=== PATIENT | male | born 1955 | race Caucasian/White ===

== ENCOUNTER 2017-10-01 06:47 | Day surgery (SDC) | payer MEDICARE, OTHER, SELFPAY ==
[2017-09-25 12:04] VITALS: BMI 32.1
[2017-10-01] VITALS (9 sets, daily range): BP systolic 116–178; BP diastolic 52–93; PULSE 67–76; RESP 13–18; TEMP 36.2–36.6; O2SAT 95–100; BMI 32.1
[2017-10-01] MEDS: LACTATED RINGERS 1,000 ML 42 ML IV (07:11)
--- NOTE | 2017-10-01 07:16 | PM.PREOP ---
Pre-operative Note Interval Note Pre-op Check: History & Physical Reviewed by Physician and Exam Performed
--- NOTE | 2017-10-01 08:43 | PM.OP.1 ---
Operative Date/Time/Diagnoses - Date of procedure: 10/01/17 Time of procedure: 09:55 Pre-op diagnosis: Cervical disc herniation and stenosis Post-op diagnosis: same Procedure & Clinicians Procedure: C4-5 anterior cervical diskectomy and artificial disc replacement with microscope Same procedure as scheduled: Yes Indications: [age] year old male with intractable pain from cervical disc herniation. They had failed conservative management and requested operative intervention. Risks and benefits of surgery were discussed and appropriate consents were obtained. Surgeon: Carmelo Lopez Merchandise Director: Lulu Reid Anesthesia Type: General Operative Notes Findings: none Closure Type: primary Specimen(s): none sent Estimated Blood Loss (mL): 2 Procedure in detail: Patient was brought to the operating room and intubated on the table. A time-out was performed. Preoperative antibiotics were given. The neck was prepped and draped in the standard sterile fashion. Using a skin fold, we made a 3 cm oblique incision on the left side using his previous incision. We used Bovie to go through the platysma and then did a standard anterolateral blunt dissection down to the precervical fascia, dissecting through his previous scar tissue.. Fascia was nicked and elevated up. We exposed the top of his plate for placement. We then cleared out the disc and part of the vertebral body above this. We then subperiosteally elevated up the longus colli muscles. Self-retaining retractors were placed. [place] pins were placed under x-ray guidance to be parallel to the endplates. We then brought in the microscope. A scalpel used to perform an annulotomy. We then used a combination of pituitaries and curettes and Kerrison to perform a complete anterior diskectomy at C4-5. We took down the PLL and used Kerrison to remove any posterior disc material and osteophytes. At the end we could from the nerve hook cephalad caudally and out the foramen and everything was opened. We distracted open with the parallel pickling solution maker. We then used the horseshoes for sizing. We then used the trials. We then inserted a 15 mm x 15 mm x 5 mm size Mobi-C artificial disc replacement under fluoroscopic guidance for positioning. The traction was released and x-ray was checked again. The self-retaining retractors and [place] pins were removed and final x-rays taken. The wound was irrigated. There was no bleeding. The carotid was beating nicely. The platysma was closed. The superficial was closed. The skin was closed. A sterile dressing was placed. They were then extubated and brought to recovery room with no complications. Complications: none Condition: stable Disposition: PACU Plan for aftercare: Admitted for observation with bed. Possibly discharge this afternoon. Soft collar for comfort.
[2017-10-01] MEDS: CEFAZOLIN 2 GM/100 ML FROZ.PIGGY IV (09:05)
--- NOTE | 2017-10-01 09:22 | SUR.OPER ---
Supine on padded OR bed, head on gel donut, arm padded and tucked at side, legs uncrossed, safety belt at thigh, pillow under knees and lower legs .
[2017-10-01] MEDS: THROMBIN (BOVINE) 5,000 UNIT VIAL 5000 UNIT TOP (09:29)
[2017-10-01] MEDS: BUPIVACAINE 0.25% W/ EPI 50 ML VIAL INJ (09:35)
[2017-10-01] MEDS: SODIUM CHLORIDE 0.9% 1,000 ML, GENTAMICIN 80 MG IRR (09:43)
--- NOTE | 2017-10-01 10:11 | DI.RAD.S_ITS ---
PROCEDURE: XR CERVICAL SPINE 2V OR 3V INDICATIONS: 62-year-old male undergoing C4-C5 disc surgery. TECHNIQUE: 2 intraoperative view(s) of the cervical spine were acquired. COMPARISON: [facility], CR, XR CERVICAL SPINE 2 OR 3 VIEWS, 06/19/2017, 9:31. FINDINGS: Bones: Patient is status post C4-C5 disc replacement, with surgical prosthesis in expected position. C5-C7 interbody fusion and anterior fixation hardware remain in expected positions. Soft tissues: Endotracheal tube and nasogastric tube are partially visualized. IMPRESSION: C4-C5 disc replacement hardware appears in expected position. Dictated by: Taran Payne M.D. on 10/01/2017 at 10:40 Approved by: Taran Payne M.D. on 10/01/2017 at 10:42
[2017-10-01] MEDS: fentaNYL 100 MCG/2 ML INJ IV ×2 (10:40→10:47)
[2017-10-01] MEDS: hydrOXYzine 50 MG/ML INJ 25 MG IM (10:43)
[2017-10-01] MEDS: HYDROMORPHONE 0.5 MG INJ 0.2 MG IV (12:22)
[2017-10-01] MEDS: LACTATED RINGERS 1,000 ML 125 ML IV (12:24)
--- NOTE | 2017-10-01 12:35 | PC.ADMIT ---
[id number] Admission Note: The patient,Jordan Chavis,62 y/o, was given written information regarding hospital policies, unit procedures and contact persons. Patient's smoking status: Never smoker. Vital Signs - 8 hr 10/01/17 07:13 10/01/17 10:22 10/01/17 10:27 Temperature 97.9 F 97.1 F L Pulse Rate 70 71 74 Respiratory Rate 15 15 14 Blood Pressure 178/90 H 116/64 118/52 L Pulse Oximetry 100 96 97 10/01/17 10:31 10/01/17 10:42 10/01/17 10:58 Temperature Pulse Rate 67 74 72 Respiratory Rate 13 16 18 Blood Pressure 120/66 130/73 H 131/70 H Pulse Oximetry 97 96 96 10/01/17 11:10 10/01/17 11:30 10/01/17 12:25 Temperature 97.1 F L Pulse Rate 73 70 76 Respiratory Rate 15 Blood Pressure 160/93 H 157/91 H 155/91 H Pulse Oximetry 96 95 97 Rec'd pt from PACU to 101 at 1105. Transferred from stretcher to bed with slider board and assist x3. Pt is AAO x4 and making needs known with clear, logical speech. Oriented to surroundings, routine, pain scale, pain med regimen. Dsg to anterior neck is CDI. Soft collar in place. VSS. Placed call light in easy reach and educated to fall risk and use of call light. Pt and verbalize understanding. Notified speech therapy of order and requested ETA. Betsy states will be here approx 1330. Regular diet ordered. Pt requesting something the eat/drink. Provided soup and pudding, thin water. Pt tolerating without s/s of aspiration. Will monitor.
[2017-10-01] MEDS: HYDROCODONE/ACET 5/325 TABLET 1 TAB PO ×2 (13:02→14:40)
--- NOTE | 2017-10-01 15:07 | PC.NURSE ---
Pt d/c'd to home 1455 per MD order. Provided d/c packet and written prescriptions. Reviewed d/c packet, f/u appts, medications, s/s of infx, activity orders. Pt and verbalize understanding. All belongings are gathered and sent with pt. GLADIS escorted pt to POV via w/c at 1455 in [facility].
== END 2017-10-01 14:55 | disposition home or self-care (01) ==
LOC: OR 06:50 → AC 07:44 → ICU 09:02
PROVIDERS: Family Provider Chiropractor; PCP Physician Assistant Medical; Visit Provider Orthopaedic Surgery
PROC: (CPT 22856; principal; 2017-10-01 08:45)
DX: Z98.1 Arthrodesis status (principal); M48.02 Spinal stenosis, cervical region; M54.12 Radiculopathy, cervical region; G47.33 Obstructive sleep apnea (adult) (pediatric); I10 Essential (primary) hypertension; I71.4 Abdominal aortic aneurysm, without rupture
CPT/HCPCS: 22856; 72040; 76001; 87797; 92526; 92610; C1776; J0330; J0690; J1100; J1170; J2250; J2405; J2704; J3010; J3410